=== PATIENT | female | born 2005 | race Caucasian/White ===

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

== ENCOUNTER 2025-04-14 11:13 | Emergency (ER) | payer OTHER ==
[~2025-04-14] VITALS: Ht 175.3 cm; Wt 70.5 kg
[~2025-04-14 11:13] MED LIST: SYEDA 28 TABLE1 EACH PO
[2025-04-14 11:59] LABS: BASOPHILS 0.9 % (0.1-1.2); EOSINOPHILS 4.2 % (0.7-5.8); LYMPHOCYTES 44.5 % (19.3-51.7); MCH 27.5 PG (25.6-32.2); MCHC 32.9 g/dL (32.2-35.5); MCV 83.7 fL (79.4-94.8); MONOCYTES 6.8 % (4.7-12.5); NEUTROPHILS 43.5 % (34.0-71.1); RBC 5.34 M/uL (3.93-5.22)
[2025-04-14 12:15] LABS: ALT (SGPT) 29.0 U/L (14-59); AST (SGOT) 18.0 U/L (15-37); GLOMERULAR FILTRATION RATE,EST 109.0 mL/min (>60); PROTEIN, TOTAL 7.7 g/dL (6.4-8.2); UREA NITROGEN 10.0 mg/dL (7-18)
[2025-04-14 13:13] VITALS: BP 102/91
--- NOTE | 2025-04-15 06:01 | EKG ---
[facility] [address] [facility] [place] [address] Signed Sinus rhythm with premature atrial complexes Otherwise normal ECG No previous ECGs available Confirmed by SAHIL DAVIS MD ([id number]) on 04/15/2025 6:01:29 AM Electronically Signed By: SAHIL DAVIS 04/15/25 0601 PATIENT NAME: DIVINA GONZALES Electrocardiogram DATE OF : 5 PHYSICIAN: SAHIL DAVIS REPORT #: [id number] REPORT IS CONFIDENTIAL AND NOT TO BE RELEASED WITHOUT AUTHORIZATION
== END 2025-04-14 13:12 | disposition home or self-care (01) ==
LOC: ED 11:13
PROVIDERS: Emergency Medicine
DX: R20.0 Anesthesia of skin (principal)
CPT/HCPCS: 36415; 80053; 84703; 85025; 93005; 93010; 99284